=== PATIENT | male | born 1985 | race Two or more races ===

== ENCOUNTER 2018-11-02 17:06 | Emergency (ER) | payer OTHER ==
[2018-11-02 17:14] VITALS: BP 137/98
--- NOTE | 2018-11-02 17:16 | ED Physician Documentation ---
History of Present Illness - Stated complaint Stated Complaint: FINGER LAC - Chief complaint Chief Complaint: Laceration - History obtained from History obtained from: Patient - History of Present Illness Timing: Prior to arrival Pain level max: 5 - Additonal information Additional information: Patient is a previously healthy, left-handed 33 yo male presenting with superficial, linear laceration to his left index finger on the ventral surface. This occurred just prior to arrival when patient was cutting bread with his right hand. Patient denies any other injuries. He does report mild decreased sensation to this area, but denies any strength or range of motion changes. 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 Patient does have a difficult time seeing his own blood and admits to feeling slightly lightheaded and nauseous, but denies other complaints. Patient reports no other improving or worsening factors contributing to his symptoms.Knife is brand-new and otherwise intact per report. Review of Systems Cardiac: reports: Other (Distal pulses intact, cap refill brisk) Skin: reports: Laceration (s) Musculoskeletal: reports: Extremity pain Neurologic: reports: Numbness PD PAST MEDICAL HISTORY - Past Medical History Past Medical History: No - Past Surgical History Past Surgical History: No - Present Medications Home Medications: Ambulatory Orders Medication Instructions Recorded Confirmed Hyoscyamine Sulfate [Levsin-Sl] 0.125 mg SL Q4H #20 tab.subl 05/24/16 Ondansetron Odt [Zofran] 4 mg TL Q6H PRN #10 tablet 05/24/16 - Allergies Allergies/Adverse Reactions: Allergies Allergy/AdvReac Type Severity Reaction Status Date / Time No Known Drug Allergies Allergy Verified 05/24/16 12:11 - Social History Does the pt smoke?: No Smoking Status: Never smoker Does the pt drink ETOH?: No - Immunizations Immunizations are current?: Yes PD ED PE NORMAL - General General: Alert and oriented X 3, No acute distress, Well developed/nourished - HEENT HEENT: Atraumatic - Cardiac Cardiac: Strong equal pulses (Cap refill is brisk) - Respiratory Respiratory: No respiratory distress - Derm Derm: Normal color, Warm and dry, No rash, Other (Approximately 0.7 58 linear superficial laceration to the ventral aspect of left distal finger at approximately the DIP joint, but underside. No evidence of tendon involvement or damage to underlying structures noted. No evidence of retained foreign body or infection. Bleeding easily controlled.) - Extremities Extremities: No deformity, Other (Mild tenderness to area of laceration, but no other bony tenderness.) - Neuro Neuro: No motor deficit, No sensory deficit - Psych Psych: Normal mood, Normal affect Results - Vitals Vitals: Vital Signs - 24 hr 11/02/18 17:09 Temperature 36.6 C Heart Rate 74 Respiratory 16 Rate Blood Pressure 137/98 H O2 Saturation 100 Oxygen O2 Source Room air Procedures - Laceration (location) Finger left Length in cm: 0.8 Wound type: Linear, Superficial Neurovascular status: Sensory intact, Motor intact, Vascular intact Tendon involvement: Tendon intact Wound Preparation: Irrigated copiously NS Skin layer closure: Dermabond, Steri strips Other: Patient tolerated well, No complications, Neurovascular intact, Dressing applied, Tetanus UTD Complexity: Simple PD MEDICAL DECISION MAKING - ED course Complexity details: considered differential, d/w patient, d/w family ED course: Patient presenting with linear, superficial laceration to distal left finger. Patient denies other injuries and further evaluation limited to left upper extremity. Do not see evidence of retained foreign body and do not have concern for fracture or infection. No evidence of tendon involvement or damage to underlying structures. Discussed suturing versus use of Steri-Strips and glue and all feel that Steri-Strips and glue are appropriate. Repair performed without issue, although patient does admit to feeling slightly lightheaded and nauseous while looking up blood, but symptoms resolved when he sits back in the chair, relaxes, and closes his eyes. Patient otherwise tolerated procedure well.Did not require updating as patient is active .Discussed appropriate wound care, use of splint, and other supportive cares, as well as return precautions and follow-up with patient. As this is his dominant hand and given concern for possible wound dehiscence or infection, felt appropriate to provide work note for the next several days. Patient and family voiced understanding and are comfortable with discharge plan. Departure - Departure Disposition: 01 Home, Self Care Clinical Impression: Laceration Condition: Good Instructions: ED Laceration All Follow-Up: your,doctor [Other] - Within 3 Days Comments: Please keep wound clean and dry, using running water and soap only to clean. Do not submerge underwater. Do not apply anything else topically. Please keep splint in place so as to not move the finger extensively and re-open wound. Please follow-up with primary care physician in next 2-3 days and return to ED sooner if experience reopening of wound, bleeding from the wound, signs of infection of wound, or other concerns. Forms: Activity restrictions
== END 2018-11-02 17:50 | disposition home or self-care (01) ==
LOC: ED 17:06
DX: S61.211A Laceration without foreign body of left index finger without damage to nail, initial encounter (principal); W45.8XXA Other foreign body or object entering through skin, initial encounter; Y93.G1 Activity, food preparation and clean up
CPT/HCPCS: 12001; 99282; 99283